=== PATIENT | male | born 1940 | race Caucasian/White ===

== ENCOUNTER 2019-05-16 12:10 | Emergency (ER) | payer MEDICARE, OTHER ==
[~2019-05-16] VITALS: Ht 180.3 cm; Wt 89.4 kg
[2019-05-16] MEDS ORDERED: LISI40TA4 PO (12:31)
[2019-05-16] MEDS ORDERED: METF-440 PO (12:31)
[2019-05-16] MEDS ORDERED: ESZO3TAB27 PO (12:31)
[2019-05-16] MEDS ORDERED: ROSU5TAB PO (12:31)
[2019-05-16] MEDS ORDERED: TERA10CA4 PO (12:31)
--- NOTE | 2019-05-16 12:55 | NUR ---
Dr Gonzalez at the bedside for MSE.
--- NOTE | 2019-05-16 13:00 | NUR ---
Cleaned cyst site and applied dressing per MD request.
--- NOTE | 2019-05-16 13:09 | NUR ---
Patient discharged to home in stable conditon. Written and verbal after care instructions given. Patient verbalizes understanding of instructions.
[2019-05-16 13:14] VITALS: BP 141/86
== END 2019-05-16 13:14 | disposition home or self-care (01) ==
LOC: ER 12:10
DX: L72.3 Sebaceous cyst (principal); E78.5 Hyperlipidemia, unspecified; E11.9 Type 2 diabetes mellitus without complications; Z79.899 Other long term (current) drug therapy
CPT/HCPCS: A4663